=== PATIENT | female | born 2000 | race Caucasian/White ===

== ENCOUNTER 2018-06-12 20:12 | Emergency (ER) | payer OTHER, MEDICAID ==
[2018-06-12] MEDS ORDERED: NAPROXEN 250 MG TABLET PO ONE (21:47)
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
[2018-06-12 22:55] VITALS: BP 136/77
== END 2018-06-12 23:23 | disposition home or self-care (01) ==
LOC: ER 20:12
DX: S80.12XA Contusion of left lower leg, initial encounter (principal); M25.561 Pain in right knee; V87.7XXA Person injured in collision between other specified motor vehicles (traffic), initial encounter
CPT/HCPCS: 99283